=== PATIENT | female | born 2000 | race Caucasian/White ===

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

== ENCOUNTER 2022-01-13 20:47 | Emergency (ER) | payer MEDICAID ==
[2022-01-13] MEDS ORDERED: Sodium Chloride 0.9% 10 ML Syringe FLUSH PRN (20:55)
[2022-01-13] MEDS ORDERED: HYDROmorphone 1 MG/ML Syringe IVPUSH ONE (20:56)
[2022-01-13] MEDS ORDERED: Ondansetron 4 MG/2 ML SDV IVPUSH ONE (20:56)
[2022-01-13] MEDS ORDERED: Sodium Chloride 0.9% 75 ML IV SCH (21:15)
[2022-01-13] MEDS ORDERED: Iopamidol 612 MG/ML 100 ML Bottle IV SCH (21:15)
[2022-01-13] MEDS ORDERED: Sodium Chloride 0.9% 1,000 ML IV SCH (21:15)
[2022-01-13 21:41] LABS: CORONAVIRUS COVID-19 NAA NEGATIVE (NEGATIVE)
== END 2022-01-13 23:04 | disposition home or self-care (01) ==
LOC: JP.ED 20:47
DX: K80.20 Calculus of gallbladder without cholecystitis without obstruction (principal); Z88.1 Allergy status to other antibiotic agents; Z20.822 Contact with and (suspected) exposure to COVID-19
CPT/HCPCS: 0241U; 36415; 74177; 76705; 76705-26; 80053; 83605; 83690; 84703; 85025; 86140; 96374; 96375; 99283; 99284-25; J1170; J2405; J3490; J7030; Q9967